=== PATIENT | female | born 1965 | race American Indian/Alaskan Native ===

== ENCOUNTER 2019-08-19 10:58 | Emergency (ER) | payer OTHER ==
[2019-08-19 11:19] VITALS: BP 143/87
--- NOTE | 2019-08-19 11:31 | Emergency Department Report ---
ED Rash HPI - HPI Chief Complaint: Skin Rash Stated Complaint: ALLERGIC REACTION/SKIN RASH Time Seen by Provider: 08/19/19 11:20 Duration: years Location: Lower Extremities Suspected Cause: Unknown Rash Symptoms: Yes Itching, No Facial Swelling, No Tongue/Oral Swelling, No Breathing Difficulties, No Choking Sensation, No Wheezing/Dyspnea, No Peeling, No Blistering, No Fever, No Lightheaded, No Malaise, No Myalgias Severity: mild Other History: This is a 54-year-old female nontoxic well in appearance with no signs of distress presents to the ED with complaint of feet scaly rash with itching x 10 years. Patient denies any swelling, pus, or drainage. Patient denies any other symptoms. Denies any fever, chills, headache, nausea, vomiting, chest pain or SOB. Denies any other complaints. HX of similar symptoms. ED Review of Systems ROS: Stated complaint: ALLERGIC REACTION/SKIN RASH Other details as noted in HPI Constitutional: denies: chills, fever Eyes: denies: eye pain, eye discharge, vision change ENT: denies: ear pain, throat pain Respiratory: denies: cough, shortness of breath, wheezing Cardiovascular: denies: chest pain, palpitations Endocrine: no symptoms reported Gastrointestinal: denies: abdominal pain, nausea, diarrhea Genitourinary: denies: urgency, dysuria, discharge Musculoskeletal: denies: back pain, joint swelling, arthralgia Skin: denies: rash, lesions Neurological: denies: headache, weakness, paresthesias Psychiatric: denies: anxiety, depression Hematological/Lymphatic: denies: easy bleeding, easy bruising ED Past Medical Hx - Past Medical History Previous Medical History?: No - Surgical History Past Surgical History?: No Rash Exam - Exam General: Vital signs noted. No distress. Alert and acting appropriately. HEENT: No Periorbital Edema, No Conjuctival Injection, No Chemosis, No Perioral Edema, No Tongue Edema, No Uvular Edema, No Compromised Airway, No Drooling Lungs: Yes Good Air Exchange (Normal Breath Sounds), No Wheezes, No Ronchi, No Stridor, No Cough, No Labored Respirations, No Retractions, No Use of Accessory Muscles, No Other Abnormal Lung Sounds Heart: Yes Regular, No Murmur Skin: Yes Other (scaly rash to bilateral feet and itching), No Urticarial Rash, No Maculopapular Rash, No Morbilliform rash, No Bulla(e), No Excoriations, No Weeping, No Tenderness, No Erythema, No Edema, No Encrustations Other: Positive: Abdomen Normal, Neurologic Normal, Musculoskeletal Normal ED Course Vital Signs 08/19/19 08/19/19 11:17 11:24 Temperature 99.2 F 98.3 F Pulse Rate 112 H Respiratory 18 Rate Blood Pressure 143/87 O2 Sat by Pulse 99 Oximetry - Reevaluation(s) Reevaluation #1: 08/19/19 11:28 Patient is speaking in full sentences with no signs of distress noted. ED Medical Decision Making - Medical Decision Making 54-year-old female that presents with chornic athletes feet. Patient is stable and was examined by me. No fever. No cellulitis. Non medical emergency. Patient received follow-up with PCP that she can see today at discharge. Patient was instructed to Follow-up with a primary care doctor in [facility] or if symptoms worsen and continue return to emergency room as soon as possible. At time of discharge, the patient does not seem toxic or ill in appearance. No acute signs of distress noted. Patient agrees to discharge treatment plan of care. No further questions noted by the patient. Critical care attestation.: If time is entered above; I have spent that time in minutes in the direct care of this critically ill patient, excluding procedure time. ED Disposition Clinical Impression: Tinea pedis, recurrent Disposition: Z-07 MED SCREENING EXAM-LEFT Is pt being admited?: No Does the pt Need Aspirin: No Condition: Stable Instructions: Tinea Pedis (ED) Additional Instructions: Follow-up with a primary care doctor in [facility] or if symptoms worsen and continue return to emergency room as soon as possible. Referrals: PRIMARY CARE, [Referring] - [facility] TREVON SHERIDAN MD [Staff Physician] - [facility] [Outside] - [facility]
== END 2019-08-19 12:15 | disposition left against medical advice (07) ==
LOC: ED 10:58
DX: B35.3 Tinea pedis (principal); Z88.2 Allergy status to sulfonamides
CPT/HCPCS: 99281